=== PATIENT | female | born 1970 | race Caucasian/White ===

== ENCOUNTER 2018-01-24 12:37 | Emergency (ER) | payer MEDICAID ==
[2018-01-24] MEDS: IBUPROFEN 800 MG TAB PO (13:46)
== END 2018-01-24 15:37 | disposition home or self-care (01) ==
LOC: FTE 12:37
DX: M25.572 Pain in left ankle and joints of left foot (principal); M54.9 Dorsalgia, unspecified
CPT/HCPCS: 72100; 73610; 73630-LT; 81025; 99284-25